=== PATIENT | female | born 2005 | race Two or more races ===

== ENCOUNTER 2023-10-23 08:43 | Emergency (ER) | payer OTHER, SELFPAY ==
--- NOTE | ~2023-10-23 | XR_ITS ---
EXAMINATION: XR KNEE, LEFT CLINICAL INFORMATION: Left knee pain x1 week. COMPARISON: None available. TECHNIQUE: Four views of the left knee. FINDINGS: Alignment is anatomic. Joint spaces are maintained. No significant joint effusion. No abnormal soft tissue calcification. XR/XR knee LT 3V IMPRESSION: No acute abnormality.
[2023-10-23 08:49] VITALS: BP 114/57; PULSE 73; RESP 18; TEMP 35.9; O2SAT 99; BMI 40.3
--- NOTE | 2023-10-23 10:17 | ED.LOWEXIN ---
HPI - Extremity Injury (Lower) General Chief Complaint: Extremity Injury, Lower Stated Complaint: L hip to knee pain & numbness Time Seen by Provider: 10/23/23 10:13 Source: patient, RN notes reviewed and old records reviewed Mode of arrival: ambulatory History of Present Illness ED Provider: Huma De Jesus PA-C HPI Narrative: 18-year-old female with no significant past medical history presenting to the ED complaining of right-sided low back and left knee pain x a few weeks. Reports pain worsened yesterday with associated tingling down LLE. Denies known injury/trauma or fall. Admits to working on her feet all day which is exacerbating her symptoms. Has been taking ibuprofen with little relief. Denies incontinence, retention, dysuria/hematuria, abdominal pain Related Data Previous Rx's ?Medication ?Instructions ?Recorded acetaminophen 500 mg tablet 500 mg PO Q6H PRN fever or pain 10/23/23 (Tylenol Extra Strength) #14 tabs cyclobenzaprine 5 mg tablet 5 mg PO Q8H PRN pain (scale score 10/23/23 7-10) 5 days #9 tabs lidocaine 5 % topical patch 1 patch topical DAILY PRN pain #30 10/23/23 (Lidoderm) ea naproxen 500 mg tablet 500 mg PO BID PRN pain 10 days #20 10/23/23 tabs Allergies Allergy/AdvReac Type Severity Reaction Status Date / Time No Known Allergies Allergy Verified 10/23/23 08:51 Review of Systems Review of Systems: Constitutional: No Fever, No Chills ENT/Mouth: No Ear Pain, No sore throat, No Rhinorrhea Cardiovascular: No Chest Pain, No SOB Respiratory: No Cough Gastrointestinal: No Nausea, No Vomiting, No Abdominal pain Genitourinary: No Dysuria, No Urinary Frequency, No Hematuria, No Urinary Incontinence/retention, No Flank Pain Musculoskeletal: +joint pain, No Myalgias, No Joint Swelling Skin: No Skin Lesions, No rash Neuro: No Weakness, No Numbness, + Paresthesias Yes all other systems are reviewed and are negative Constitutional: Constitutional: Reports as per [facility] Past Medical History Attestation statement: The following information was validated with the patient. Source: old records reviewed Social History Social History Advance Directives: No Advance Directives Information Provided: No Physical Exam Vital Signs: Vital Signs: Last Vital Signs Temp 96.7 F L 10/23/23 08:49 Pulse 73 10/23/23 08:49 Resp 18 10/23/23 08:49 BP 114/57 L 10/23/23 08:49 Pulse Ox 99 10/23/23 08:49 O2 Del Method Room Air 10/23/23 08:49 BMI result Body Mass Index 40.3 Const: General: cooperative, healthy appearing and no acute distress Orientation/consciousness: patient oriented x3 Limitations: no limitations HEENT: Head: Yes normal to inspection and Yes atraumatic Ears: hearing grossly normal bilaterally General nose exam: Normal external nose present Face and sinus: Yes normal facial exam Eyes: General: appearance normal, both eyes and all related structures EOM: EOMs intact bilaterally Neck: Neck: Yes normal visual inspection and Yes no meningeal signs Resp: Effort & Inspection: normal respiratory effort and no respiratory distress Cardio: Rate: regular rate GI: Inspection: Yes normal to inspection Palpation (GI): Soft to palpation, nontender, no guarding and not rigid : General: Yes no CVA tenderness Back/Spine/Pelvis: Other: No midline cervical/thoracic/lumbar spinous tenderness/step-off or deformity. + right-sided lumbar MSK reproducible tenderness. No rash/ecchymosis or erythema Back: no CVA tenderness Skin: Rashes: no rashes Wounds: no wounds Neuro: Other: Strength intact throughout. No saddle anesthesia. Sensation intact to light touch. Neurovascular intact distally General: patient oriented x3, gait normal, tone normal and no meningeal signs Cranial nerves: Yes CN's II-XII intact bilaterally Gait exam (Neuro): Normal gait present Motor exam (neuro): 5/5 motor strength present throughout Extrem: Other: Left knee without appreciable deformity or erythema. Mildly tender to palpation greatest a medial aspect. Full range of motion intact. Neurovascularly intact distally. No calf tenderness. General: Yes normal to inspection Course Course Course Narrative: -UA negative XR knee LT 3V IMPRESSION: No acute abnormality. > BRITTNEY wrap applied for comfort -Results discussed with patient including worrisome signs and symptoms and strict return precautions, and when to return to the emergency department. They verbalized understanding and feel safe for discharge at this time. Medications Administered Discontinued Medications Generic Name Dose Route Start Last Admin Trade Name Freq PRN Reason Stop Dose Admin Naproxen 500 mg 10/23/23 10:39 10/23/23 11:01 Naproxen 500 Mg Tablet PO 10/23/23 10:40 500 mg ONCE ONE Administration Medical Decision Making Medical Decision Making [facility] Narrative: 18-year-old female with no significant past medical history presenting to the ED complaining of right-sided low back and left knee pain x a few weeks. On exam vital signs stable, NAD, nontoxic appearing, physical exam as noted above without midline spinous tenderness or red flag symptoms, ambulating with steady gait. Concern for MSK pain/strain vs sprain vs sciatica. Lower suspicion for UTI/pyelo or septic joint or DVT. Unlikely cauda equina/cord compression or fracture Plan: UA, x-ray Please refer to course for remaining clinical decision making, interpretation of labs/imaging results, and discussions with consultants and/or family members. Differential Diagnosis Differential Diagnoses: The differential diagnosis associated with the presentation includes As above Lab Data [facility] Lab Attestation statement: I reviewed the patient's lab results. Labs: Lab Results 10/23/23 Range/Units 11:13 Urine Color Yellow Urine Appearance Clear Urine pH 7.0 (5.0-9.0) Ur Specific [place] 1.010 (1.005-1.025) Urine Protein Negative (Neg-Trace) mg/dL Urine Glucose (UA) Negative (Negative) mg/dL Urine Ketones Negative (Negative) mg/dL Urine Blood Negative (Negative) Urine Nitrite Negative (Negative) Ur Leukocyte Esterase Negative (Negative) Independent Interpretation I performed an independent interpretation of an: Plain X-Ray Radiology Impression Discussion of test interpretation with radiology: I have reviewed the radiologist's reading. External Record Review External record reviewed: Inpatient record, Office record, Outpatient record, Prior outpatient labs, Prior outpatient radiology, Primary care record and Outside ED record Tests considered The following testing was considered but not selected: As above Prescription Management I considered prescription management with: Pain Medication Discharge Plan Discharge Clinical Impression: Knee pain, Low back pain Patient Disposition: Home, Self-Care Instructions: Acute Low Back Pain (ED), Knee Pain (ED) Additional Instructions: your x-ray was unremarkable Your pain is likely musculoskeletal Flexeril is a muscle relaxer, take at night as it makes you drowsy, do not drive, drink alcohol, or operate machinery while taking it Naproxen as an anti-inflammatory / pain medication, take with food Lidoderm patches are numbing patches, apply to painful area In addition take Tylenol at home If symptoms persist or worsen, pain becomes unbearable, you developed urinary retention or incontinence, or weakness return to the ED Prescriptions: New acetaminophen [Tylenol Extra Strength] 500 mg tablet 500 mg PO Q6H PRN (Reason: fever or pain) Qty: 14 0RF lidocaine [Lidoderm] 5 % adhesive patch,medicated 1 patch topical DAILY MDD remove after 12 hours PRN (Reason: pain) Qty: 30 0RF Rx Instructions: leave on most painful area for up to 12 hrs naproxen 500 mg tablet 500 mg PO BID PRN (Reason: pain) 10 Days Qty: 20 0RF cyclobenzaprine 5 mg tablet 5 mg PO Q8H PRN (Reason: pain (scale score 7-10)) 5 Days Qty: 9 0RF Referrals: [facility] [Provider Group] [facility] Orth[facility] Surgeons [Provider Group] ED Physician,Generic [Physician] - 5 days Print Language: [place]
[2023-10-23] MEDS: NaPROXEN 500 MG TABLET PO (11:01)
[2023-10-23 11:21] LABS: Appearance Urine Clear; Color Urine Yellow; Glucose Urine UA Negative (Negative); Leukocyte Esterase Urine Negative (Negative); Nitrite Urine Negative (Negative); Urine Blood Negative (Negative); Urine Ketones Negative (Negative); Urine Protein Negative (Neg-Trace)
[2023-10-23] MEDS: Cyclobenzaprine HCl 5 MG TABLET PO (12:21)
--- NOTE | 2023-10-23 12:25 | PC.NURSE ---
rafael wrap applied to patient right knee, patient tolerated well.
[2023-10-23 12:26] VITALS: BP 116/68; PULSE 54; RESP 16; TEMP 36.3; O2SAT 99
[2023-10-23 12:30] LABS: UPreg QC Valid YES; Urine Pregnancy NEGATIVE (NEGATIVE)
== END 2023-10-23 12:26 | disposition home or self-care (01) ==
PROVIDERS: Physician Assistant; Emergency Provider Emergency Medicine
DX: M54.50 Low back pain, unspecified (principal); M25.562 Pain in left knee
CPT/HCPCS: 73562; 81003; 81025; 99283

== ENCOUNTER → 2023-11-04 11:41 | Outpatient (BNVA) | payer OTHER, SELFPAY | PROVIDERS: Visit Provider Pediatrics ==